=== PATIENT | female | born 1960 | race African-American/Black ===

== ENCOUNTER 2018-12-07 15:20 | Inpatient (IN) | payer OTHER ==
[2018-12-07 18:18] VITALS: BMI 32.3
--- NOTE | 2018-12-07 20:48 | HP ---
CIWA Score Nausea/Vomitin-No Nausea/No Vomiting Muscle Tremors: None Anxiety: 0-No Anxiety, at Ease Agitation: 0-Normal Activity Paroxysmal Sweats: No Perspiration Orientation: 0-Oriented Tacttile Disturbances: 0-None Auditory Disturbances: 0-None Visual Disturbances: 0-None Headache: 0-None Present CIWA-Ar Total Score: 0 - Admission Criteria OASAS Guidelines: Admission for Medically Managed Detox: Requires at least one of the followin. CIWA greater than 12 2. Seizures within the past 24 hours 3. Delirium tremens within the past 24 hours 4. Hallucinations within the past 24 hours 5. Acute intervention needed for co occurring medical disorder 6. Acute intervention needed for co occurring psychiatric disorder 7. Severe withdrawal that cannot be handled at a lower level of care (continued vomiting, continued diarrhea, abnormal vital signs) requiring intravenous medication and/or fluids 8. Admission ROS [facility] Chief Complaint: rehab from cocaine and alcohol use Allergies/Adverse Reactions: Allergies Allergy/AdvReac Type Severity Reaction Status Date / Time No Known Allergies Allergy Verified 12/07/18 18:11 History of Present Illness: 58 yo with c/o back and hip, s/p Hip replacement 2014, here for alcohol rehab. h /o depression and bipolar d/o. Pt brought meds with her: abilify 15mg and citalopram 10mg alcohol 2-3 beers/every 2 days cocaine $200/3 days, crack cocaine utox- nargis pos PAT- neg - Ebola screening Have you traveled outside of the country in the last 21 days: No Have you had contact with anyone from an Ebola affected area: No Do you have a fever: No - Review of Systems Constitutional: No Symptoms Reported EENT: reports: No Symptoms Reported Respiratory: reports: No Symptoms reported Cardiac: reports: No Symptoms Reported GI: reports: No Symptoms Reported : reports: Other (stress incontinence) Musculoskeletal: reports: No Symptoms Reported Integumentary: reports: No Symptoms Reported Neuro: reports: No Symptoms reported Endocrine: reports: No Symptoms Reported Hematology: reports: No Symptoms Reported Psychiatric: reports: No Sypmtoms Reported Patient History - Patient Medical History Hx Anemia: No Hx Asthma: No Hx Chronic Obstructive Pulmonary Disease (COPD): No Hx Cancer: No Hx Cardiac Disorders: No Hx Congestive Heart Failure: No Hx Hypertension: No Hx Hypercholesterolemia: No Hx Pacemaker: No HX Cerebrovascular Accident: No Hx Seizures: No Hx Dementia: No Hx Diabetes: No Hx Gastrointestinal Disorders: No Hx Liver Disease: No Hx Genitourinary Disorders: No Hx Sexually Transmitted Disorders: No Hx Renal Disease (ESRD): No Hx Thyroid Disease: No Hx Human Immunodeficiency Virus (HIV): No Hx Hepatitis C: No Hx Depression: No Hx Suicide Attempt: No Hx Bipolar Disorder: No Hx Schizophrenia: No Other Medical History: arthritis both hips - Patient Surgical History Hx Orthopedic Surgery: Yes (L hip replacement) - PPD History PPD to be Administered?: No - Reproductive History Patient : Yes - Smoking Cessation Smoking history: Current every day smoker Have you smoked in the past 12 months: Yes Aproximately how many cigarettes per day: 8 Hx Chewing Tobacco Use: No Initiated information on smoking cessation: Yes 'Breaking Loose' booklet given: 12/07/18 - Substances abused Alcohol Substance route: Oral Frequency: 3-6 times per week Amount used: 16 ounces of beer and half pint of vodka. Age of first use: 21 Date of last use: 12/07/18 Crack Substance route: Smoking Frequency: 1-2 times per week Amount used: 300 dollars Age of first use: 29 Date of last use: 12/07/18 Admission Physical Exam S - Vital Signs Vital Signs: Vital Signs - 24 hr 12/07/18 18:11 Temperature 97.8 F Pulse Rate 68 Respiratory 16 Rate Blood Pressure 108/71 - Physical General Appearance: Yes: Within Normal Limits, No Apparent Distress, Nourished HEENTM: Yes: Within Normal Limits, EOMI, Hearing grossly Normal, Normocephalic Respiratory: Yes: Within Normal Limits, Chest Non-Tender, Lungs Clear Neck: Yes: Within Normal Limits, No masses,lesions,Nodules Abdominal: Yes: Within Normal Limits, Normal Bowel Sounds Back: Yes: Within Normal Limits Musculoskeletal: Yes: Within Normal Limits Extremities: Yes: Within Normal Limits Neurological: Yes: Within Normal Limits, 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-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 NML intact, Fully Oriented Integumentary: Yes: Within Normal Limits, Normal Color, Dry Lymphatic: Yes: Within Normal Limits - Diagnostic (1) Alcohol use disorder Current Visit: Yes Status: Acute (2) Cocaine use disorder Current Visit: Yes Status: Acute (3) Arthritis Current Visit: Yes Status: Acute (4) Bipolar 1 disorder Current Visit: Yes Status: Acute (5) Depression Current Visit: Yes Status: Acute Breathalyzer - Breathalyzer Breathalyzer: 0 Urine Drug Screen - Test Device Lot number: [id number] Expiration date: 09/28/20 - Control Is test valid?: Yes - Results Drug screen NEGATIVE: No Urine drug screen results: NARGIS-Cocaine Inpatient Rehab Admission - Rehab Decision to Admit Inpatient rehab admission?: Yes - Initial Determination Are CD services needed?: Yes Free of communicable disease: Yes Not in need of hospitalization: Yes - Rehab Admission Criteria Previous failed treatment: Yes Poor recovery environment: Yes Comorbidities: Yes Lacks judgement: Yes Patient is meeting Inpatient Rehab admission criteria:: Yes (alcohol and cocaine use)
[2018-12-07] MEDS ORDERED: hydrOXYzine PAMOATE 25 MG CAPSULE (FP) PO PRN (20:52)
[2018-12-07] MEDS ORDERED: MENTHOL/PHENOL 1 EACH UD MM PRN (20:52)
[2018-12-07] MEDS ORDERED: P-EPHED 60MG/TRIPROLIDI 2.5MG TABLET PO PRN (20:52)
[2018-12-07] MEDS ORDERED: MAG HYDROX/AL HYDROX/SIMETH 30 ML UNIT-DOSE CUP PO PRN (20:52)
[2018-12-07] MEDS ORDERED: MAGNESIUM HYDROX 2400MG/30ML ORAL SUSPENSION 30 ML CUP PO PRN (20:52)
[2018-12-07] MEDS ORDERED: LOPERAMIDE HCL 2 MG CAPSULE PO PRN (20:52)
[2018-12-07] MEDS ORDERED: guaiFENesin 200 MG/10 ML 10 ML UNIT-DOSE CUPS PO PRN (20:52)
[2018-12-07] MEDS ORDERED: ACETAMINOPHEN 325 MG TABLET (FP) PO PRN (20:52)
[2018-12-07] MEDS ORDERED: MAGNESIUM CITRATE 300 ML BOTTLE PO PRN (20:52)
[2018-12-07] MEDS ORDERED: METHOCARBAMOL 500 MG TABLET PO PRN (20:57)
[2018-12-07] MEDS: THIAMINE HCL 100 MG TABLET (FP) PO SCH (23:39)
[2018-12-08] MEDS ORDERED: ARIPiprazole 15 MG TABLET PO SCH (10:00)
[2018-12-08] MEDS ORDERED: PT OWN MED DRAWER 7, Y5N ONE (10:02)
[2018-12-08] MEDS: PRENATAL VITAMINS W/ FOLIC ACID TABLET (FP) PO SCH (10:03)
[2018-12-08] MEDS: NICOTINE 14 MG/24 HOURS TOPICAL PATCH TD SCH (10:03)
[2018-12-08] MEDS: CITALOPRAM HYDROBROMIDE 10 MG TABLET (FP) PO SCH (10:03)
[2018-12-08] MEDS ORDERED: PNEUMOCOCCAL 23 VACCINE 0.5 ML VIAL IM ONE (12:00)
[2018-12-08] MEDS ORDERED: PNEUMOC 13-VAL CONJ-DIP CRM/PF 0.5 ML DISP.SYRIN IM ONE (12:00)
[2018-12-08 12:11] LABS: HEMATOCRIT 38.4 % (32.4-45.2); HEMOGLOBIN 12.7 GM/dL (10.7-15.3); MCH 27.9 pg (25.7-33.7); MCHC 33.1 g/dl (32.0-36.0); MEAN CELL VOLUME 84.3 fl (80-96); RBC 4.56 M/mm3 (3.60-5.2); RDW 14.7 % (11.6-15.6); WHITE BLOOD COUNT 3.9 K/mm3 (4.0-10.0)
[2018-12-08 12:15] LABS: ALBUMIN 3.5 g/dl (3.4-5.0); BILIRUBIN,TOTAL 0.3 mg/dL (0.2-1); BLOOD UREA NITROGEN 10.7 mg/dL (7-18); CALCIUM 9.1 mg/dL (8.5-10.1); CREATININE 1.1 mg/dL (0.55-1.3); POTASSIUM 3.7 mmol/L (3.5-5.1); TOT PROT 6.4 g/dl (6.4-8.2)
[2018-12-08 12:50] LABS: PLATELET COUNT 225 K/MM3 (134-434)
[2018-12-08] MEDS: THIAMINE HCL 100 MG TABLET (FP) PO SCH (21:40)
[2018-12-08] MEDS: MELATONIN 5 MG TABLETS PO PRN (21:40)
[2018-12-09] MEDS: NICOTINE 14 MG/24 HOURS TOPICAL PATCH TD SCH (09:33)
[2018-12-09] MEDS: CITALOPRAM HYDROBROMIDE 10 MG TABLET (FP) PO SCH (09:33)
[2018-12-09] MEDS: PRENATAL VITAMINS W/ FOLIC ACID TABLET (FP) PO SCH (09:34)
--- NOTE | 2018-12-09 12:11 | CONSULT ---
[facility] Psychiatric Consult - Data Date of interview: 12/09/18 Identifying data: Ms Mullins is a 58 years old female seeking rehab treatment for alcohol and cocaine Substance Abuse History: Reports history of alcohol and crack cocaine use. Refer to addiction counselor's summary for further information Medical History: Significant for arthritis both hips and history of orthosurgery for left hip replacement in 2914. Smokes 8 cigarettes daily
--- NOTE | 2018-12-09 15:34 | CONSULT ---
[facility] Psychiatric Consult - Data Date of interview: 12/09/18 Admission source: [facility] Identifying data: Patient is a 58 year old single female, mother of seven, unemployed, domiciled, and is supported by [facility]. This is patient's first admission to detox at [facility]. Patient admitted to rehab for alcohol and cocaine dependence. Substance Abuse History: Smoking Cessation. Smoking history: Current every day smoker. Have you smoked in the past 12 months: Yes. Aproximately how many cigarettes per day: 8. Hx Chewing Tobacco Use: No. Initiated information on smoking cessation: Yes. 'Breaking Loose' booklet given: 12/07/18. - Substances abused. Alcohol. Substance route: Oral. Frequency: 3-6 times per week. Amount used: 16 ounces of beer and half pint of vodka. Age of first use: 21. Date of last use: 12/07/18. Crack. Substance route: Smoking. Frequency: 1-2 times per week. Amount used: 300 dollars. Age of first use: 29. Date of last use: 12/07/18 Medical History: Left hip replacement, Arthritis in both hips. Psychiatric History: Patient's first psychiatric contact was at 28 after her mother pursuaded her to move out due to behavior changes related to her history of substance abuse the individuals she was socializing with. Patient's mother was able to find an SRO for patient which required her to see a psychiatrist. After seeing the psychiatrist she reports being diagnosed with schizophrenia and was prescribed paxil and thorzaine. Ms. Mullins reports h/o two psychiatric hospitalizations ([facility] in 1990 and [facility] in her early 30's for behaving irritational.) Patient's most recent outpatient psychiatric was provided in June- July at [facility] outpatient clinic. She was prescribed abilify 10mg + Celexa 10mg. Patient's most recent prescription was given to her by a medical provider at [facility] (Dr. Mariee). External records show 30 day script for abilify 15mg + Celexa 10mg on 10/07/18. At present, patient reports feeling sad but denies auditory/visual hallucinations and suicidal/homicidal ideation. Physical/Sexual Abuse/Trauma History: denies. Mental Status Exam - Mental Status Exam Alert and Oriented to: Time, Place, Person Cognitive Function: Good Patient Appearance: Well Groomed Mood: Sad Affect: Mood Congruent Patient Behavior: Cooperative Speech Pattern: Appropriate Voice Loudness: Normal Thought Process: Goal Oriented Thought Disorder: Not Present Hallucinations: Denies Suicidal Ideation: Denies Homicidal Ideation: Denies Insight/Judgement: Poor Sleep: Fair Appetite: Fair Muscle strength/Tone: Normal Gait/Station: Normal Psychiatric Findings - Problem List ([place] 1, 2,3) (1) Bipolar II disorder Current Visit: Yes Status: Chronic (2) Schizoaffective disorder Current Visit: No Status: Suspected (3) Alcohol use disorder Current Visit: Yes Status: Acute (4) Cocaine use disorder Current Visit: Yes Status: Acute - Initial Treatment Plan Initial Treatment Plan: Psychoeducation provided. Detoxification in progress. Will order Abilify 15 + celexa 10mg HS. Benefits and side effects discussed. Verbal consent given.
[2018-12-09] MEDS: IBUPROFEN 400 MG TABLET (FP) PO PRN (21:52)
[2018-12-09] MEDS: MELATONIN 5 MG TABLETS PO PRN (21:52)
[2018-12-09] MEDS: THIAMINE HCL 100 MG TABLET (FP) PO SCH (21:52)
[2018-12-10] MEDS ORDERED: PT OWN MED DRAWER 7, Y5N ONE (08:52)
[2018-12-10] MEDS: ARIPiprazole 15 MG TABLET PO SCH (10:42)
[2018-12-10] MEDS: CITALOPRAM HYDROBROMIDE 10 MG TABLET (FP) PO SCH (10:42)
[2018-12-10] MEDS: PRENATAL VITAMINS W/ FOLIC ACID TABLET (FP) PO SCH (10:42)
[2018-12-10] MEDS: NICOTINE 14 MG/24 HOURS TOPICAL PATCH TD SCH (10:43)
[2018-12-10] MEDS: MELATONIN 5 MG TABLETS PO PRN (21:42)
[2018-12-10] MEDS: THIAMINE HCL 100 MG TABLET (FP) PO SCH (21:42)
[2018-12-10] MEDS: IBUPROFEN 400 MG TABLET (FP) PO PRN (21:42)
[2018-12-11] MEDS: ARIPiprazole 15 MG TABLET PO SCH (09:15)
[2018-12-11] MEDS: NICOTINE 14 MG/24 HOURS TOPICAL PATCH TD SCH (09:15)
[2018-12-11] MEDS: CITALOPRAM HYDROBROMIDE 10 MG TABLET (FP) PO SCH (09:15)
[2018-12-11] MEDS: PRENATAL VITAMINS W/ FOLIC ACID TABLET (FP) PO SCH (09:15)
[2018-12-11] MEDS: IBUPROFEN 400 MG TABLET (FP) PO PRN (09:16)
[2018-12-11] MEDS: THIAMINE HCL 100 MG TABLET (FP) PO SCH (21:46)
[2018-12-11] MEDS: MELATONIN 5 MG TABLETS PO PRN (21:46)
[2018-12-12] MEDS ORDERED: PT OWN MED DRAWER 7, Y5N ONE (09:00)
[2018-12-12] MEDS: NICOTINE 14 MG/24 HOURS TOPICAL PATCH TD SCH (09:41)
[2018-12-12] MEDS: ARIPiprazole 15 MG TABLET PO SCH (09:41)
[2018-12-12] MEDS: PRENATAL VITAMINS W/ FOLIC ACID TABLET (FP) PO SCH (09:41)
[2018-12-12] MEDS: CITALOPRAM HYDROBROMIDE 10 MG TABLET (FP) PO SCH (09:41)
[2018-12-12] MEDS: IBUPROFEN 400 MG TABLET (FP) PO PRN ×2 (09:42→21:25)
[2018-12-12] MEDS: THIAMINE HCL 100 MG TABLET (FP) PO SCH (21:25)
[2018-12-12] MEDS: MELATONIN 5 MG TABLETS PO PRN (21:25)
[2018-12-13] MEDS: NICOTINE 14 MG/24 HOURS TOPICAL PATCH TD SCH (10:34)
[2018-12-13] MEDS: ARIPiprazole 15 MG TABLET PO SCH (10:34)
[2018-12-13] MEDS: PRENATAL VITAMINS W/ FOLIC ACID TABLET (FP) PO SCH (10:34)
[2018-12-13] MEDS: CITALOPRAM HYDROBROMIDE 10 MG TABLET (FP) PO SCH (10:34)
[2018-12-13] MEDS: IBUPROFEN 400 MG TABLET (FP) PO PRN ×2 (10:35→21:51)
[2018-12-13] MEDS: THIAMINE HCL 100 MG TABLET (FP) PO SCH (21:51)
[2018-12-13] MEDS: MELATONIN 5 MG TABLETS PO PRN (21:51)
[2018-12-14] MEDS: ARIPiprazole 15 MG TABLET PO SCH (10:38)
[2018-12-14] MEDS: CITALOPRAM HYDROBROMIDE 10 MG TABLET (FP) PO SCH (10:39)
[2018-12-14] MEDS: NICOTINE 14 MG/24 HOURS TOPICAL PATCH TD SCH (10:39)
[2018-12-14] MEDS: PRENATAL VITAMINS W/ FOLIC ACID TABLET (FP) PO SCH (10:40)
[2018-12-14] MEDS: IBUPROFEN 400 MG TABLET (FP) PO PRN ×2 (10:40→21:50)
[2018-12-14] MEDS: THIAMINE HCL 100 MG TABLET (FP) PO SCH (21:46)
[2018-12-14] MEDS: LIDOCAINE PATCH REMOVAL MC SCH (21:47)
[2018-12-14] MEDS ORDERED: PT OWN MED DRAWER 7, Y5N ONE (21:47)
[2018-12-14] MEDS: LIDOCAINE 5% TOPICAL PATCH TP SCH (21:48)
[2018-12-14] MEDS: METHYL SALICYLATE/MENTHOL OINT 30 GM TUBE TP SCH (21:49)
[2018-12-14] MEDS: MELATONIN 5 MG TABLETS PO PRN (21:49)
[2018-12-15] MEDS ORDERED: PT OWN MED DRAWER 7, Y5N ONE ×2 (08:45→10:27)
[2018-12-15] MEDS: LIDOCAINE 5% TOPICAL PATCH TP SCH (10:24)
[2018-12-15] MEDS: METHYL SALICYLATE/MENTHOL OINT 30 GM TUBE TP SCH (10:26)
[2018-12-15] MEDS: CITALOPRAM HYDROBROMIDE 10 MG TABLET (FP) PO SCH (10:26)
[2018-12-15] MEDS: NICOTINE 14 MG/24 HOURS TOPICAL PATCH TD SCH (10:26)
[2018-12-15] MEDS: PRENATAL VITAMINS W/ FOLIC ACID TABLET (FP) PO SCH (10:26)
[2018-12-15] MEDS: ARIPiprazole 15 MG TABLET PO SCH (10:27)
[2018-12-15] MEDS: THIAMINE HCL 100 MG TABLET (FP) PO SCH (21:38)
[2018-12-15] MEDS: LIDOCAINE PATCH REMOVAL MC SCH (21:39)
[2018-12-15] MEDS: MELATONIN 5 MG TABLETS PO PRN (21:39)
[2018-12-15] MEDS: IBUPROFEN 400 MG TABLET (FP) PO PRN (21:41)
[2018-12-16] MEDS: METHYL SALICYLATE/MENTHOL OINT 30 GM TUBE TP SCH (09:38)
[2018-12-16] MEDS: ARIPiprazole 15 MG TABLET PO SCH (09:38)
[2018-12-16] MEDS: PRENATAL VITAMINS W/ FOLIC ACID TABLET (FP) PO SCH (09:39)
[2018-12-16] MEDS: LIDOCAINE 5% TOPICAL PATCH TP SCH (09:39)
[2018-12-16] MEDS: NICOTINE 14 MG/24 HOURS TOPICAL PATCH TD SCH (09:39)
[2018-12-16] MEDS: CITALOPRAM HYDROBROMIDE 10 MG TABLET (FP) PO SCH (09:39)
[2018-12-16] MEDS: THIAMINE HCL 100 MG TABLET (FP) PO SCH (21:42)
[2018-12-16] MEDS: LIDOCAINE PATCH REMOVAL MC SCH (21:43)
[2018-12-16] MEDS: MELATONIN 5 MG TABLETS PO PRN (21:43)
[2018-12-16] MEDS: IBUPROFEN 400 MG TABLET (FP) PO PRN (21:44)
[2018-12-17] MEDS ORDERED: PT OWN MED DRAWER 7, Y5N ONE ×2 (09:08→11:25)
[2018-12-17] MEDS: PRENATAL VITAMINS W/ FOLIC ACID TABLET (FP) PO SCH (11:21)
[2018-12-17] MEDS: CITALOPRAM HYDROBROMIDE 10 MG TABLET (FP) PO SCH (11:21)
[2018-12-17] MEDS: NICOTINE 14 MG/24 HOURS TOPICAL PATCH TD SCH (11:22)
[2018-12-17] MEDS: ARIPiprazole 15 MG TABLET PO SCH (11:24)
[2018-12-17] MEDS: METHYL SALICYLATE/MENTHOL OINT 30 GM TUBE TP SCH (11:24)
[2018-12-17] MEDS: LIDOCAINE 5% TOPICAL PATCH TP SCH (11:26)
[2018-12-17] MEDS: THIAMINE HCL 100 MG TABLET (FP) PO SCH (21:23)
[2018-12-17] MEDS: LIDOCAINE PATCH REMOVAL MC SCH (21:23)
[2018-12-17] MEDS: MELATONIN 5 MG TABLETS PO PRN (21:23)
[2018-12-18] MEDS ORDERED: PT OWN MED DRAWER 7, Y5N ONE (08:47)
[2018-12-18] MEDS: PRENATAL VITAMINS W/ FOLIC ACID TABLET (FP) PO SCH (10:04)
[2018-12-18] MEDS: CITALOPRAM HYDROBROMIDE 10 MG TABLET (FP) PO SCH (10:04)
[2018-12-18] MEDS: ARIPiprazole 15 MG TABLET PO SCH (10:05)
[2018-12-18] MEDS: LIDOCAINE 5% TOPICAL PATCH TP SCH (10:05)
[2018-12-18] MEDS: NICOTINE 14 MG/24 HOURS TOPICAL PATCH TD SCH (10:05)
[2018-12-18] MEDS: METHYL SALICYLATE/MENTHOL OINT 30 GM TUBE TP SCH (10:06)
[2018-12-18] MEDS: IBUPROFEN 400 MG TABLET (FP) PO PRN (21:50)
[2018-12-18] MEDS: THIAMINE HCL 100 MG TABLET (FP) PO SCH (21:50)
[2018-12-18] MEDS: LIDOCAINE PATCH REMOVAL MC SCH (21:51)
[2018-12-18] MEDS: MELATONIN 5 MG TABLETS PO PRN (21:51)
[2018-12-19] MEDS ORDERED: PT OWN MED DRAWER 7, Y5N ONE (08:43)
[2018-12-19] MEDS: LIDOCAINE 5% TOPICAL PATCH TP SCH (10:33)
[2018-12-19] MEDS: METHYL SALICYLATE/MENTHOL OINT 30 GM TUBE TP SCH (10:33)
[2018-12-19] MEDS: ARIPiprazole 15 MG TABLET PO SCH (10:33)
[2018-12-19] MEDS: NICOTINE 14 MG/24 HOURS TOPICAL PATCH TD SCH (10:33)
[2018-12-19] MEDS: CITALOPRAM HYDROBROMIDE 10 MG TABLET (FP) PO SCH (10:33)
[2018-12-19] MEDS: PRENATAL VITAMINS W/ FOLIC ACID TABLET (FP) PO SCH (10:33)
[2018-12-19] MEDS: IBUPROFEN 400 MG TABLET (FP) PO PRN (21:22)
[2018-12-19] MEDS: MELATONIN 5 MG TABLETS PO PRN (21:22)
[2018-12-19] MEDS: THIAMINE HCL 100 MG TABLET (FP) PO SCH (21:22)
[2018-12-19] MEDS: LIDOCAINE PATCH REMOVAL MC SCH (21:57)
--- NOTE | 2018-12-20 06:14 | PN ---
[facility] Progress Note Note: Patient is scheduled for discharge today. Scripts for 30 days supply of medications(Abilify 15 mg/day, Celexa 10 mg.day) are electronically transmitted to [facility] at [address] [place], [place] [id number]
[2018-12-20 06:41] VITALS: BP 114/74; PULSE 60; TEMP 97.2
[2018-12-20] MEDS ORDERED: PT OWN MED DRAWER 7, Y5N ONE (08:45)
--- NOTE | 2018-12-20 14:31 | PN ---
S Progress Note (SOAP) Subjective: PT COMPLETED REHAB AND DISCHARGED TODAY. PT MET WITH COUNSELOR, LIAT LONGORIA AND HAS BEEN REFERRED TO [facility] CD AFTERCARE. PT REPORTS SHE HAS A PCP DR. COHEN AT [facility]. PT DENIES S/H/I. Objective: 12/20/18 14:34 ALERT O X 3. Vital Signs - 24 hr 12/20/18 12/20/18 12/20/18 00:30 03:30 06:40 Temperature 97.2 F L Pulse Rate 60 Respiratory 18 18 18 Rate Blood Pressure 114/74 Laboratory Tests 12/08/18 12/08/18 12/08/18 08:20 08:20 08:20 WBC 3.9 L RBC 4.56 Hgb 12.7 Hct 38.4 MCV 84.3 MCH 27.9 MCHC 33.1 RDW 14.7 Plt Count 225 MPV 8.0 Sodium 146 H Potassium 3.7 Chloride 110 H Carbon Dioxide 29 Anion Gap 7 L BUN 10.7 Creatinine 1.1 Est GFR (CKD-EPI)AfAm 63.64 Est GFR (CKD-EPI)NonAf 54.91 Random Glucose 110 H Calcium 9.1 Total Bilirubin 0.3 AST 7 L ALT 15 Alkaline Phosphatase 66 Total Protein 6.4 Albumin 3.5 RPR Titer Nonreactive HIV 1&2 Antibody Screen HIV P24 Antigen TB Test (QFT) Nil TB Test (QFT) Mitogen TB Test (QFT) Antigen TB Test (QFT) TB Positive Criteria 12/08/18 12/08/18 08:20 08:20 WBC RBC Hgb Hct MCV MCH MCHC RDW Plt Count MPV Sodium Potassium Chloride Carbon Dioxide Anion Gap BUN Creatinine Est GFR (CKD-EPI)AfAm Est GFR (CKD-EPI)NonAf Random Glucose Calcium Total Bilirubin AST ALT Alkaline Phosphatase Total Protein Albumin RPR Titer HIV 1&2 Antibody Screen Negative HIV P24 Antigen Negative TB Test (QFT) Nil 0.08 TB Test (QFT) Mitogen >10.00 TB Test (QFT) Antigen 0.07 TB Test (QFT) Negative TB Positive Criteria 12/20/18 14:37 Home Medications Medication Instructions Recorded Aripiprazole 15 mg PO DAILY 12/07/18 Brompheniramine/Pseudoephed/Dm 2.5 ml PO QID PRN 12/07/18 [Ovpvrotfxa-Hzlljzlbhbw-Eg Syr] Citalopram Hydrobromide [Celexa -] 10 mg PO DAILY 12/07/18 Fluticasone Furoate [Arnuity 50 mcg IH DAILY 12/07/18 Ellipta] Guaifenesin [Robafen] 200 mg PO Q4HWA PRN 12/07/18 Aripiprazole [Abilify -] 15 mg PO DAILY #30 tablet 12/20/18 Citalopram Hydrobromide [Celexa -] 10 mg PO DAILY #30 tablet 12/20/18 Assessment: 12/20/18 14:34 NAD MEDICALLY STABLE 12/20/18 14:39 [facility] Inpatient Services Medical - Diagnosis (1) Alcohol use disorder Status: Chronic (2) Arthritis Status: Chronic (3) Cocaine use disorder Status: Chronic Initialized on 12/20/18 14:38 - END OF NOTE Plan: FOLLOW UP WITH CD AFTERCARE RECOMMENDED. FOLLOW UP WITH PRIMARY CARE PROVIDER AT [place], [place] WITHIN 1-2 WEEKS AFTER DISCHARGE.
== END 2018-12-20 08:55 | disposition home or self-care (01) | DRG 772 ==
LOC: YASAS 15:20 → Y3E 21:11
PROVIDERS: ADMIT Neuromusculoskeletal Medicine & OMM; ATTEND Neuromusculoskeletal Medicine & OMM
PROC: HZ42ZZZ Group Counseling for Substance Abuse Treatment, Cognitive-Behavioral (ICD-10-PCS; principal; 2018-12-07)
DX: F10.20 Alcohol dependence, uncomplicated (principal); F14.20 Cocaine dependence, uncomplicated; F17.210 Nicotine dependence, cigarettes, uncomplicated; F31.81 Bipolar II disorder; F25.9 Schizoaffective disorder, unspecified; M13.852 Other specified arthritis, left hip; M13.851 Other specified arthritis, right hip; Z96.642 Presence of left artificial hip joint
CPT/HCPCS: 36415; 80053; 85027; 86480; 86593; 87389